=== PATIENT | female | born 1980 | race Caucasian/White ===

== ENCOUNTER 2018-06-20 17:16 | Emergency (ER) | payer BC, OTHER ==
[2018-06-20] MEDS ORDERED: Adacel (T-DAP) 0.5 ML VIAL ONE (17:42)
== END 2018-06-20 18:40 | disposition home or self-care (01) ==
LOC: ERS 17:16
DX: S61.012A Laceration without foreign body of left thumb without damage to nail, initial encounter (principal); E03.9 Hypothyroidism, unspecified; E11.9 Type 2 diabetes mellitus without complications; F41.9 Anxiety disorder, unspecified; Z23 Encounter for immunization; Z79.84 Long term (current) use of oral hypoglycemic drugs; Z79.899 Other long term (current) drug therapy; W26.0XXA Contact with knife, initial encounter
CPT/HCPCS: 90471; 90715

== ENCOUNTER 2021-03-14 12:12 | Outpatient (CLI) | payer BC | END 2021-03-14 12:13 | disposition home or self-care (01) | LOC: BICULT 12:12 | PROVIDERS: ATTEND Family Medicine | DX: R10.11 Right upper quadrant pain (principal); R93.2 Abnormal findings on diagnostic imaging of liver and biliary tract; Z90.49 Acquired absence of other specified parts of digestive tract | CPT/HCPCS: 93975 ==

== ENCOUNTER 2021-03-27 07:23 | Outpatient (CLI) | payer BC ==
[2021-03-27] MEDS ORDERED: Magnevist 469MG/ML 20 ML VIAL ONE (09:02)
== END 2021-03-27 07:24 | disposition home or self-care (01) ==
LOC: BICMRI 07:23
PROVIDERS: ATTEND Family Medicine
DX: R10.10 Upper abdominal pain, unspecified (principal); Z90.49 Acquired absence of other specified parts of digestive tract
CPT/HCPCS: 74183; 82565; A9579

== ENCOUNTER 2024-03-18 08:29 | Outpatient (CLI) | payer BC ==
[2024-03-18] MEDS ORDERED: Iopamidol 370 76% 100 ML VIAL ONE (12:09)
== END 2024-03-18 08:30 | disposition home or self-care (01) ==
LOC: BICCT 08:29
PROVIDERS: ATTEND Family Medicine
DX: R31.9 Hematuria, unspecified (principal); K76.0 Fatty (change of) liver, not elsewhere classified; R16.0 Hepatomegaly, not elsewhere classified
CPT/HCPCS: 74178; 82565